=== PATIENT | male | born 1985 | race African-American/Black ===

== ENCOUNTER 2021-10-06 01:05 | Emergency (ER) | payer SELFPAY ==
[~2021-10-06] VITALS: Ht 162.6 cm; Wt 65.8 kg
--- NOTE | 2021-10-06 07:35 | NUR ---
ASSESSED PT ON BED ASLEEP EASILY AROUSABLE, NOT IN RESPIRATORY DISTRESS, V/S STABLE, KEPT RESTED AND CONFORTABLE. WILL CONTINUE TO MONITOR.
--- NOTE | 2021-10-06 08:02 | NUR ---
PT ABLE TO AMBULATE STRAIGHT WITH OUT ASSISTANCE. AWARE.
[2021-10-06 09:51] VITALS: BP 118/58
--- NOTE | 2021-10-06 09:51 | NUR ---
Patient discharged to home in stable condition. Written and verbal after care instructions given. Patient verbalizes understanding of instruction.
== END 2021-10-06 09:52 | disposition home or self-care (01) ==
LOC: ER 01:10
DX: F10.129 Alcohol abuse with intoxication, unspecified (principal); Y90.9 Presence of alcohol in blood, level not specified
CPT/HCPCS: 82962-TC